=== PATIENT | male | born 1950 | race Caucasian/White ===

== ENCOUNTER 2025-10-06 06:47 | Emergency (ER) | payer OTHER ==
[~2025-10-06] VITALS: Ht 177.8 cm; Wt 103.3 kg
[2025-10-06] MEDS ORDERED: LOSARTAN-HCTZ1 EACH PO (06:55)
[2025-10-06] MEDS ORDERED: METFORMIN HCL500 MG PO (06:55)
[2025-10-06] MEDS ORDERED: ALDACTONE25 MG PO (06:57)
[2025-10-06] MEDS ORDERED: ASPIRIN 81 MG CHEW PO ONE (07:00)
[2025-10-06] MEDS ORDERED: NITROGLYCERIN 0.4 MG SUBL SL PRN (07:00)
[2025-10-06 07:15] LABS: BASOPHILS 0.4 % (0.2-1.2); EOSINOPHILS 2.5 % (0.8-7.0); LYMPHOCYTES 35.7 % (21.8-53.1); MCH 32.1 PG (25.7-32.2); MCHC 35.3 g/dL (32.3-36.5); MCV 90.9 fL (79.0-92.2); MONOCYTES 7.9 % (5.3-12.2); NEUTROPHILS 52.8 % (34.0-67.9); RBC 4.08 M/uL (4.63-6.08)
[2025-10-06 07:18] LABS: ALT (SGPT) 26.0 U/L (14-59); AST (SGOT) 20.0 U/L (15-37); GLOMERULAR FILTRATION RATE,EST 43.0 mL/min (>60); PROTEIN, TOTAL 7.5 g/dL (6.4-8.2); UREA NITROGEN 23.0 mg/dL (7-18)
[2025-10-06] MEDS ORDERED: HYDROmorphone HCL 1 MG/ML SYR IV ONE ×3 (07:30→08:45)
[2025-10-06] MEDS ORDERED: FAMOTIDINE 20 MG/ 2 ML VIAL IV ONE (07:30)
[2025-10-06] MEDS ORDERED: SODIUM CHLORIDE 0.9% 1,000 ML IV PRN (07:30)
[2025-10-06] MEDS ORDERED: LIDOCAINE & ANTACID 35 ML BTL PO ONE (08:15)
[2025-10-06] MEDS ORDERED: PANTOPRAZOLE SODIUM 40 MG/10 ML VIAL IV ONE (08:45)
[2025-10-06] MEDS ORDERED: MAGNESIUM SULFATE 2 GM/50 ML BAG IV ONE (08:45)
[2025-10-06] MEDS ORDERED: HYDROCODONE/APAP 10/325 1 TAB PO ONE (10:00)
[2025-10-06] MEDS ORDERED: LORazepam 2 MG/ML VIAL IV ONE (10:00)
[2025-10-06] MEDS ORDERED: SUCRALFATE 1 GM TAB PO ONE (10:00)
[2025-10-06] MEDS ORDERED: CARAFATE1 GM PO (10:52)
[2025-10-06] MEDS ORDERED: HYDROCODON-ACE1 EAC8 PO (10:52)
[2025-10-06] MEDS ORDERED: PRILOSEC OTC20 MG PO (10:52)
[2025-10-06] MEDS ORDERED: ONDANSETRON HCL4 MG PO (10:52)
[2025-10-06 11:22] VITALS: BP 134/82
--- NOTE | 2025-10-08 13:11 | EKG ---
[facility] [address] [place] [address] Signed Sinus rhythm with 1st degree AV block Left axis deviation Minimal voltage criteria for LVH, may be normal variant ( R in aVL ) Inferior infarct , age undetermined Abnormal ECG When compared with ECG of 06-OCT-2025 06:48, (Unconfirmed) Inferior infarct is now present Confirmed by Perez Carrera DO ([id number]) on 10/08/2025 1:11:02 PM Electronically Signed By: PEREZ CARRERA DO 10/08/25 1311 PATIENT NAME: MARCOS DOSS Electrocardiogram DATE OF : 46 PHYSICIAN: PEREZ CARRERA DO REPORT #: [id number] REPORT IS CONFIDENTIAL AND NOT TO BE RELEASED WITHOUT AUTHORIZATION
--- NOTE | 2025-10-08 13:11 | EKG ---
[facility] [address] [place], [place] [address] Signed Sinus rhythm with 1st degree AV block Left axis deviation Abnormal ECG No previous ECGs available Confirmed by Sacha Carrera DO ([id number]) on 10/08/2025 1:10:50 PM Electronically Signed By: SACHA CARRERA DO 10/08/25 1311 PATIENT NAME: MARCOS DOSS SHEELA Electrocardiogram DATE OF : 46 PHYSICIAN: SACHA CARRERA DO REPORT #: [id number] REPORT IS CONFIDENTIAL AND NOT TO BE RELEASED WITHOUT AUTHORIZATION
== END 2025-10-06 11:11 | disposition home or self-care (01) ==
LOC: ED 06:47
PROVIDERS: Internal Medicine
DX: K29.70 Gastritis, unspecified, without bleeding (principal); E11.9 Type 2 diabetes mellitus without complications; I10 Essential (primary) hypertension; Z79.84 Long term (current) use of oral hypoglycemic drugs; Z79.899 Other long term (current) drug therapy
CPT/HCPCS: 36415; 71045; 71275; 80053; 83690; 83735; 84484; 85025; 93005; 93010; 96361; 96365; 96375; 96376; 99285-25; A9270; J1171; J2060; J2405; J2470; J3475; J7030; Q9967